=== PATIENT | female | born 1995 | race Caucasian/White ===

== ENCOUNTER 2018-09-30 01:15 | Inpatient (IN) | payer OTHER ==
[2018-09-30 02:04] VITALS: BMI 35.1
[2018-09-30] MEDS ORDERED: AMPICILLIN - 2 GM in SODIUM CHLORIDE 100 ML IVPB ONE (02:30)
[2018-09-30] MEDS ORDERED: AMPICILLIN SODIUM 2 GM VIAL ONE (02:34)
[2018-09-30] MEDS ORDERED: DEXTROSE 5%-LACTATED RINGERS 1,000 ML IV ONE ×2 (02:37→06:15)
[2018-09-30 02:41] LABS: BASO % 0.2 % (0-2.0); EOS % 0.9 % (0-4.5); HEMATOCRIT 29.7 % (32.4-45.2); HEMOGLOBIN 9.7 GM/dL (10.7-15.3); LYMPH % 21.8 % (8-40); MCH 24.6 pg (25.7-33.7); MCHC 32.6 g/dl (32.0-36.0); MEAN CELL VOLUME 75.5 fl (80-96); MEAN PLT VOLUME 9.8 fl (7.5-11.1); MONO % 6.1 % (3.8-10.2); PLATELET COUNT 218 K/MM3 (134-434); RBC 3.93 M/mm3 (3.60-5.2); RDW 16.2 % (11.6-15.6); WHITE BLOOD COUNT 9.9 K/mm3 (4.0-10.0)
[2018-09-30 02:53] LABS: INR 0.99 (0.83-1.09); PROTHROMBIN TIME (PATIENT) 11.7 SEC (9.7-13.0)
[2018-09-30 02:55] LABS: ACTIVATED PTT 26.3 SECONDS (25.2-36.5)
[2018-09-30 03:03] LABS: ALBUMIN 2.7 g/dl (3.4-5.0); ALK PHOS 125 U/L (45-117); ANION GAP 8 MMOL/L (8-16); BILIRUBIN,TOTAL 0.2 mg/dL (0.2-1); BLOOD UREA NITROGEN 9 mg/dL (7-18); CALCIUM 8.5 mg/dL (8.5-10.1); CHLORIDE 106 mmol/L (98-107); CO2 23 mmol/L (21-32); CREATININE 0.5 mg/dL (0.55-1.3); GLUCOSE,RANDOM 127 mg/dL (74-106); POTASSIUM 3.8 mmol/L (3.5-5.1); SGOT/AST 11 U/L (15-37); SGPT/ALT 13 U/L (13-61); SODIUM 137 mmol/L (136-145); TOT PROT 6.3 g/dl (6.4-8.2)
[2018-09-30] MEDS ORDERED: BUTORPHANOL TARTRATE 1 MG/ML VIAL IVPB ONE (03:29)
--- NOTE | 2018-09-30 03:34 | HP ---
Past Medical History - Admission Chief Complaint: SROM History of Present Illness: 23yo @ 38.1 wks with SROM at 5:45pm PNC @ [facility] Preg c/b [facility] ygerus, insufficient care (7 visits), GBS unknown History Source: Patient Limitations to Obtaining History: No Limitations - Past Medical History RECORDS SPECIALIST: No: Alzheimer's, CVA, Dementia, Migraine, Multiple Sclerosis, Peripheral Neuropathy, Parkinson's, Seizure, Syncope, TIA, Vertigo, Other Cardiovascular: No: AFIB, Aneurysm, Aortic Insufficiency, Aortic Stenosis, CAD, CHF, Deep Vein Thrombosis, HTN, Hyperlipdemia, IL, Mitral Insufficiency, Mitral Stenosis, Murmur, Pulmonary Hypertension, Other Pulmonary: No: Asthma, Bronchitis, Cancer, COPD, O2 Dependent, Pneumonia, Previously Intubated, Pulmonary Embolus, Pulmonary Fibrosis, Sleep Apnea, Other Gastrointestinal: No: Ascites, Cancer, Constipation, Crohn's Disease, Diverticulitis, Diverticulosis, Esophageal Varices, Gastritis, GERD, GI Bleed, Hemorrhoids, Hiatal Hernia, Inflamatory Bowel Disease, Irritable Bowel Disease, Pancreatitis, Peptic Ulcer Disease, Ulcerative Colitis, Other Hepatobiliary: No: Cirrhosis, Cholelithiasis, Cholecystitis, Choledocholithiasis , Hepatitis A, Hepatitis B, Hepatitis C, Other Renal/: No: Renal Failure, Renal Inusuff, BPH, Cancer, Hematuria, Hemodialysis , Neurogenic Bladder, Renal Calculi, UTI, Other Reproductive: Yes: Other ...: 1 ...Para: 0 ...Term: 0 ...: 0 ...Spon : 0 ...Induced : 0 ...Multiple Gestation: 0 ...LMP: 12/31/17 ... Weeks Gestation by Dates: 39.0 ...EDC by Dates: 10/07/18 ...EDC by Sono: 10/08/18 - Past Surgical History Past Surgical History: Yes: None Hx Myomectomy: No Hx Transabdominal Cerclage: No - Smoking History Smoking history: Former smoker Have you smoked in the past 12 months: No - Alcohol/Substance Use Hx Alcohol Use: No History of Substance Use: reports: None - Social History Usual Living Arrangement: Yes: Alone ADL: Independent History of Recent Travel: No Home Medications - Allergies Allergies/Adverse Reactions: Allergies Allergy/AdvReac Type Severity Reaction Status Date / Time No Known Allergies Allergy Verified 09/30/18 01:44 - Home Medications Home Medications: Ambulatory Orders Iron 1 tab PO DAILY 09/30/18 Vitamins (Sjr) - 1 tab PO DAILY 09/30/18 Physical Exam - Maternity Vital Signs: Vital Signs Temperature 98.1 F 09/30/18 01:30 Pulse Rate 94 H 09/30/18 03:00 Respiratory Rate 20 09/30/18 03:00 Blood Pressure 128/68 09/30/18 03:00 O2 Sat by Pulse Oximetry (%) Constitutional: Yes: Well Nourished Eyes: Yes: WNL, Conjunctiva Clear, EOM Intact HENT: Yes: WNL, Atraumatic, Normocephalic - Abdominal Exam/OB Number of Fetuses: Single Presentation: Vertex Contractions: Yes Regularity: Irregular Intensity: Unaware Monitor Mode: External Heart Rate Location: [facility] Category: I Accelerations: Non-Uniform Decelerations: None - Vaginal Exam/OB Vaginal Bleediing: No Speculum Exam: No Dilatation (cm): 0 Effacement (%): 0 Amniotic Membrane Status: Ruptured Nitrazine Test: Positive Amniotic Fluid: Yes: Clear Presentation: Vertex/Position Station: -3 - Labs Lab Results: CBC, BMP 09/30/18 02:11 09/30/18 02:11 Assessment/Plan 23yo @ 38.1wks SROM/PROM Admitted to L&D IVFs, clear liquids Cat I tracing Start Amp for GBS unknown/anticipated prolonged rupture Urine Drug Screen Savita Irizarry MD
[2018-09-30] MEDS ORDERED: AMPICILLIN SODIUM 1 GM VIAL ONE ×5 (05:57→22:31)
[2018-09-30] MEDS: AMPICILLIN - 1 GM in SODIUM CHLORIDE 100 ML IVPB SCH ×5 (06:14→22:30)
[2018-09-30] MEDS ORDERED: TUBERCULIN PPD 5 TU/0.1ML SYRINGE (IN PATIENT USE ONLY) ID ONE (06:30)
--- NOTE | 2018-09-30 09:06 | PN ---
Progress Note, Labor Vaginal Exam #1 Heart Rate (range): Cat I Dilatation: 0 Effacement (%): 0 Amniotic Membrane Status: Ruptured Presentation: Vertex/Position Station: -3 Remarks: Pt comfortable Contractions very infrequent Given one dose of cytotec, then transition to pitocin later today Urine Drug Screen ordered Plan of care discussed with patient/nursing/oncoming Guillermo Irizarry MD
[2018-09-30] MEDS ORDERED: MISOPROSTOL 100 MCG TABLET PO ONE (09:30)
[2018-09-30 11:10] LABS: COCAINE, UR NEGATIVE ng/ml (CUTOFF=300); METHADONE, UR NEGATIVE ng/ml (CUTOFF=300); OPIATES, URI NEGATIVE ng/ml (CUTOFF=300); PHENCYCLIDINE,URINE NEGATIVE ng/ml (CUTOFF=25); URINE AMPHETAMINES NEGATIVE ng/ml (CUTOFF=500); URINE BARBITURATES NEGATIVE ng/ml (CUTOFF=200); URINE BENZODIAZEPINES NEGATIVE ng/ml (CUTOFF=200)
--- NOTE | 2018-09-30 16:36 | PN ---
Progress Note (short form) - Note Progress Note: PROLONG prom , RECEIVED CYTOTEC, NO CONTRACTION , FHR CAT 1, , CX 1 CM 50 VX -3 MR ,CLEAR CERVIDIL RISKS DISCUSSED AGREED CERVIDIL INSERTED AT 235 PM
[2018-09-30] MEDS ORDERED: DINOPROSTONE 10 MG VAGINAL SUPPOSITORY VG ONE (18:30)
[2018-09-30] MEDS ORDERED: BUTORPHANOL TARTRATE 1 MG/ML VIAL ONE ×2 (20:35)
[2018-09-30] MEDS ORDERED: PROMETHAZINE HCL 25 MG/1 ML VIAL ONE (20:35)
[2018-09-30] MEDS ORDERED: PROMETHAZINE HCL 25 MG/1 ML VIAL IVPB ONE (20:40)
--- NOTE | 2018-09-30 21:50 | PN ---
Progress Note (short form) - Note Progress Note: cx 2cm, 70 vx -3 mr, fhr cat 1, irregular contraction
--- NOTE | 2018-10-01 00:57 | PN ---
Progress Note (short form) - Note Progress Note: cx 3 cm 80 vx -3 mr, fhr cat 1, irregular contraction, , cervidil removed , wants epidural, advised pitocin after epidural
[2018-10-01] MEDS ORDERED: ELECTROLYTE-148 SOLN 1,000 ML IV SCH (01:00)
[2018-10-01] MEDS ORDERED: FENTANYL/BUPIVACAINE/NS/PF - PCEA - 50 ML DISP.SYRIN EP ONE ×3 (01:02→09:23)
[2018-10-01] MEDS ORDERED: OXYTOCIN 30 UNITS in 0.9% NS 30 UNIT/500 ML INFUS.BAG IVPB SCH (02:00)
[2018-10-01] MEDS ORDERED: FENTANYL/BUPIVACAINE/NS/PF - PCEA - 50 ML DISP.SYRIN EP SCH (02:00)
[2018-10-01] MEDS ORDERED: NALOXONE HCL 0.4 MG/ML VIAL IVPUSH PRN (02:00)
[2018-10-01] MEDS ORDERED: OXYTOCIN 30 UNITS in 0.9% NS 30 UNIT/500 ML INFUS.BAG IVPB ONE (02:09)
[2018-10-01] MEDS ORDERED: AMPICILLIN SODIUM 1 GM VIAL ONE ×3 (02:28→10:30)
[2018-10-01] MEDS: AMPICILLIN - 1 GM in SODIUM CHLORIDE 100 ML IVPB SCH ×6 (02:30→23:03)
--- NOTE | 2018-10-01 07:18 | PN ---
Progress Note (short form) - Note Progress Note: cx 5 cm 80 vx -1 fhr cat 1, c/o back pain
--- NOTE | 2018-10-01 08:30 | PN ---
Progress Note (short form) - Note Progress Note: cx 6 cm, 100 ,vx 0 , fhr cat 1, c/o back pain, anesthesia notified
[2018-10-01] MEDS ORDERED: LIDO 2%/EPI 1:200000 PRESRVFRE (20 ML SDVIAL) ONE (10:11)
[2018-10-01] MEDS ORDERED: PROMETHAZINE HCL 25 MG/1 ML VIAL ONE (12:02)
[2018-10-01] MEDS ORDERED: BUTORPHANOL TARTRATE 1 MG/ML VIAL ONE ×2 (12:02)
[2018-10-01] MEDS ORDERED: BUTORPHANOL TARTRATE 1 MG/ML VIAL IVPUSH ONE (12:05)
[2018-10-01] MEDS ORDERED: PROMETHAZINE HCL 25 MG/1 ML VIAL IVPB ONE (12:05)
[2018-10-01] MEDS ORDERED: PROMETHAZINE HCL 25 MG/1 ML VIAL IVPUSH ONE (12:05)
--- NOTE | 2018-10-01 12:05 | PN ---
Progress Note (short form) - Note Progress Note: cx 6 cm 80 vx -1 mr, fhr cat 1, has epidural ,still c/o pain , will give one dose of stadol , will revaluate in 2 HR if no progress advise c/s
[2018-10-01] MEDS ORDERED: LIDOCAINE HCL 1% PRESERVATIVE FREE - 30ML VIAL ONE (13:19)
[2018-10-01] MEDS ORDERED: OXYTOCIN 20 UNITS in 0.9% NS 20 UNIT/1,000 ML INFUS.BAG IV ONE (13:20)
[2018-10-01] MEDS ORDERED: METHYLERGONOVINE MALEATE 0.2 MG/1 ML AMP IM PRN ×2 (13:44→14:35)
[2018-10-01] MEDS ORDERED: BISACODYL 10 MG SUPP.RECT RC PRN (13:44)
[2018-10-01] MEDS ORDERED: BENZOCAINE 28 GM HEMORRHOIDAL OINTMENT TP PRN (13:44)
[2018-10-01] MEDS ORDERED: BENZOCAINE 20% 57 GM BOTTLE TP PRN (13:44)
[2018-10-01] MEDS ORDERED: WITCH HAZEL 50% (TUCKS) 40 PAD/JAR PAD TP PRN (13:44)
[2018-10-01] MEDS ORDERED: D5W-LR W/ 20 UNITS OXYTOCIN 20 UNIT/1,000 ML INFUS.BAG IV SCH (13:45)
[2018-10-01] MEDS ORDERED: CARBOPROST TROMETHAMINE 250 MCG/ML AMPUL IM ONE (14:33)
[2018-10-01] MEDS ORDERED: OXYTOCIN 20 UNITS in 0.9% NS 20 UNIT/1,000 ML INFUS.BAG IV SCH (14:45)
[2018-10-01 15:16] LABS: VENOUS PC02 46.3 mmHg (41-51); VENOUS PH 7.24 (7.31-7.41); VENOUS PO2 29.3 mmHg (30-40)
[2018-10-01] MEDS: IBUPROFEN 600 MG TABLET (FP) PO PRN (17:21)
[2018-10-01] MEDS: ACETAMINOPHEN 325 MG TABLET (FP) PO PRN (17:22)
[2018-10-01] MEDS: FERROUS SO4 325 MG TABLET (FP) PO SCH (21:21)
[2018-10-02] MEDS: AMPICILLIN - 1 GM in SODIUM CHLORIDE 100 ML IVPB SCH (04:14)
[2018-10-02 07:30] LABS: BASO % 0.2 % (0-2.0); EOS % 0.6 % (0-4.5); HEMATOCRIT 23.2 % (32.4-45.2); HEMOGLOBIN 7.3 GM/dL (10.7-15.3); LYMPH % 12.8 % (8-40); MCH 23.7 pg (25.7-33.7); MCHC 31.6 g/dl (32.0-36.0); MEAN CELL VOLUME 75.1 fl (80-96); MEAN PLT VOLUME 9.4 fl (7.5-11.1); MONO % 7.6 % (3.8-10.2); NEUT % 78.8 % (42.8-82.8); PLATELET COUNT 184 K/MM3 (134-434); RBC 3.09 M/mm3 (3.60-5.2); RDW 16.4 % (11.6-15.6); WHITE BLOOD COUNT 14.6 K/mm3 (4.0-10.0)
[2018-10-02] MEDS: FERROUS SO4 325 MG TABLET (FP) PO SCH ×2 (09:20→21:27)
[2018-10-02] MEDS: PRENATAL VITAMINS W/ FOLIC ACID TABLET (FP) PO SCH (09:20)
[2018-10-02] MEDS ORDERED: DIPHTH,PERTUSS(ACELL),TET 0.5 ML DISP.SYRIN IM ONE (10:00)
[2018-10-02] MEDS: IBUPROFEN 600 MG TABLET (FP) PO PRN ×2 (15:57→23:10)
[2018-10-02] MEDS: ACETAMINOPHEN 325 MG TABLET (FP) PO PRN ×2 (15:58→23:09)
--- NOTE | 2018-10-02 18:15 | PN ---
Post Progress Note Post Day: 1 Type of Delivery: Vital Signs: Vital Signs Temperature 98.8 F 10/02/18 07:50 Pulse Rate 84 10/02/18 07:50 Respiratory Rate 20 10/02/18 07:50 Blood Pressure 130/71 10/02/18 07:50 O2 Sat by Pulse Oximetry (%) 99 10/01/18 13:15 Breast Exam: Yes: Soft Uterus: Yes: Fundus Firm Abdomen/GI: Yes: Abdomen soft Lochia: Yes: Rubra Lochia, amount: Small Extremities: Yes: Calves non-tender Perineum: Yes: Intact Activity: Ambulating - Labs Labs: CBC WBC 14.6 K/mm3 (4.0-10.0) H 10/02/18 07:00 RBC 3.09 M/mm3 (3.60-5.2) L 10/02/18 07:00 Hgb 7.3 GM/dL (10.7-15.3) L 10/02/18 07:00 Hct 23.2 % (32.4-45.2) L D 10/02/18 07:00 MCV 75.1 fl (80-96) L 10/02/18 07:00 MCH 23.7 pg (25.7-33.7) L 10/02/18 07:00 MCHC 31.6 g/dl (32.0-36.0) L 10/02/18 07:00 RDW 16.4 % (11.6-15.6) H 10/02/18 07:00 Plt Count 184 K/MM3 (134-434) 10/02/18 07:00 MPV 9.4 fl (7.5-11.1) 10/02/18 07:00 Absolute Neuts (auto) 11.5 K/mm3 (1.5-8.0) H 10/02/18 07:00 Neutrophils % 78.8 % (42.8-82.8) 10/02/18 07:00 Lymphocytes % 12.8 % (8-40) D 10/02/18 07:00 Monocytes % 7.6 % (3.8-10.2) 10/02/18 07:00 Eosinophils % 0.6 % (0-4.5) 10/02/18 07:00 Basophils % 0.2 % (0-2.0) 10/02/18 07:00 Nucleated RBC % 0 % (0-0) 10/02/18 07:00 Assessment/Plan ppd1 repeat cbc continue iron oob
[2018-10-02] MEDS ORDERED: SENNOSIDES/DOCUSATE COMBO (SENNA PLUS) TABLET (UD) PO PRN (22:00)
[2018-10-03 08:36] VITALS: BP 118/64; PULSE 95; TEMP 98.7
[2018-10-03] MEDS: PRENATAL VITAMINS W/ FOLIC ACID TABLET (FP) PO SCH (09:08)
[2018-10-03] MEDS: FERROUS SO4 325 MG TABLET (FP) PO SCH (09:08)
[2018-10-03 09:13] LABS: BASO % 0.1 % (0-2.0); EOS % 1.2 % (0-4.5); HEMATOCRIT 25.1 % (32.4-45.2); HEMOGLOBIN 7.8 GM/dL (10.7-15.3); LYMPH % 15.5 % (8-40); MCH 23.5 pg (25.7-33.7); MCHC 31.1 g/dl (32.0-36.0); MEAN CELL VOLUME 75.6 fl (80-96); MEAN PLT VOLUME 9.5 fl (7.5-11.1); MONO % 6.1 % (3.8-10.2); NEUT % 77.1 % (42.8-82.8); PLATELET COUNT 219 K/MM3 (134-434); RBC 3.32 M/mm3 (3.60-5.2); RDW 16.8 % (11.6-15.6); WHITE BLOOD COUNT 11.2 K/mm3 (4.0-10.0)
--- NOTE | 2018-10-05 12:40 | DS ---
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: Vital Signs Temperature 98.7 F 10/03/18 07:40 Pulse Rate 95 H 10/03/18 07:40 Respiratory Rate 18 10/03/18 07:40 Blood Pressure 118/64 10/03/18 07:40 O2 Sat by Pulse Oximetry (%) 99 10/01/18 13:15 Constitutional: Yes: Well Nourished, No Distress, Calm Eyes: Yes: WNL, Conjunctiva Clear, EOM Intact HENT: Yes: WNL, Atraumatic, Normocephalic Neck: Yes: WNL, Supple, Trachea Midline Cardiovascular: Yes: WNL, Regular Rate and Rhythm Respiratory: Yes: WNL, Regular, CTA Bilaterally Gastrointestinal: Yes: WNL ...Rectal Exam: Yes: WNL Renal/: Yes: WNL ....Post : Yes: Uterus firm, Uterus non-tender, Slight lochia rubra Breast(s): Yes: WNL Musculoskeletal: Yes: WNL Extremities: Yes: WNL Integumentary: Yes: WNL Neurological: Yes: WNL, Alert, Oriented ...Motor Strength: WNL Psychiatric: Yes: WNL, Alert, Oriented Labs: CBC, BMP 10/03/18 08:30 09/30/18 02:11 Delivery - Delivery Vaginal Delivery: Spontaneous (no complication) Type of Anesthesia: Local, Epidural EBL (cc): 500 Delivery, Single - Stages of Labor Date 1st Stage Initiatied: 10/01/18 Time 1st Stage Initiated: 01:00 Date 2nd Stage Initiated: 10/01/18 Time 2nd Stage Initiated: 13:30 Date of Delivery: 10/01/18 Time of Delivery: 13:59 Time Placenta Delivered: 14:05 Placenta: Yes: Spontaneous (satisfactory, no complication) - 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 to be seen in 4 to 6 weeks. [facility]: [phone] If pain, fever or heavy bleeding call M.[email or web address] Referrals: Chase Davis MD [Staff Physician] - Disposition: HOME - Home Medications Comprehensive Discharge Medication List: Ambulatory Orders Iron 1 tab PO DAILY 09/30/18 Vitamins (Sjr) - 1 tab PO DAILY 09/30/18
== END 2018-10-03 14:30 | disposition home or self-care (01) | DRG 807 ==
LOC: JLDR 01:15 → EDBD 01:15 → J3W 10-01 15:57
PROVIDERS: ADMIT Obstetrics & Gynecology; ATTEND Obstetrics & Gynecology
PROC: 3E0P7VZ Introduction of Hormone into Female Reproductive, Via Natural or Artificial Opening (ICD-10-PCS; 2018-09-30)
PROC: 10E0XZZ Delivery of Products of Conception, External Approach (ICD-10-PCS; principal; 2018-10-01)
DX: O42.02 Full-term premature rupture of membranes, onset of labor within 24 hours of rupture (principal); Z37.0 Single live birth; Z3A.39 39 weeks gestation of pregnancy
CPT/HCPCS: 36415; 36600; 59409; 80053; 80307; 82803; 85025; 85610; 85730; 86593; 86850; 86900; 86901; 87389; 90715

== ENCOUNTER 2019-01-10 23:58 | Emergency (ER) | payer OTHER ==
[2019-01-11 00:11] VITALS: BP 113/72; PULSE 90; TEMP 97.6; BMI 32.5
--- NOTE | 2019-01-11 01:33 | PDOC ---
*Physical Exam - Vital Signs Last Vital Signs Temp Pulse Resp BP Pulse Ox 97.6 F 90 20 113/72 98 01/11/19 00:04 01/11/19 00:04 01/11/19 00:04 01/11/19 00:04 01/11/19 00:04 Medical Decision Making - Medical Decision Making 01/11/19 01:33 Patient seen by the advanced practice provider under my direct supervision. Ancillary testing reviewed as necessary. I agree with plan as outlined by the advanced practice provider. *DC/Admit/Observation/Transfer Diagnosis at time of Disposition: Sunburn - Prescriptions Prescriptions: Calamine 8% Topical Lotion - 1 applic TP BID #1 bottle Hydrocortisone 1% Cream [Hytone 1% Cream -] 1 applic TP BID #1 tube Ibuprofen 600 mg PO QID PRN #20 tablet PRN Reason: Pain - Referrals - Patient Instructions - Post Discharge Activity
--- NOTE | 2019-01-11 01:55 | PDOC ---
History of Present Illness - General Chief Complaint: Sunburn Stated Complaint: BLISTERS ON SKIN Time Seen by Provider: 01/11/19 01:31 History Source: Patient - History of Present Illness Initial Comments: 01/11/19 01:45 23 year old female with sun burn to body and legs since yesterday. patient reports using sunscreen however with erythema and pain to the 01/11/19 02:59 Past History - Past Medical History Allergies/Adverse Reactions: Allergies Allergy/AdvReac Type Severity Reaction Status Date / Time No Known Allergies Allergy Verified 09/30/18 01:44 Home Medications: Ambulatory Orders Iron 1 tab PO DAILY 09/30/18 Vitamins (Sjr) - 1 tab PO DAILY 09/30/18 Calamine 8% Topical Lotion - 1 applic TP BID #1 bottle 01/11/19 Hydrocortisone 1% Cream [Hytone 1% Cream -] 1 applic TP BID #1 tube 01/11/19 Ibuprofen 600 mg PO QID PRN #20 tablet 01/11/19 Asthma: No Cancer: No Cardiac Disorders: No COPD: No Diabetes: No HTN: No Seizures: No Thyroid Disease: No - Suicide/Smoking/Psychosocial Hx Smoking History: Unknown if ever smoked Have you smoked in the past 12 months: No Hx Alcohol Use: No Drug/Substance Use Hx: No Hx Substance Use Treatment: No *Physical Exam - Vital Signs Last Vital Signs Temp Pulse Resp BP Pulse Ox 97.6 F 90 20 113/72 98 01/11/19 00:04 01/11/19 00:04 01/11/19 00:04 01/11/19 00:04 01/11/19 00:04 - Physical Exam General Appearance: Yes: Appropriately Dressed Integumentary: positive: Erythema (erythema to trunk, legs), Other (no streaking ) Neurologic: positive: Fully Oriented, Alert *DC/Admit/Observation/Transfer Diagnosis at time of Disposition: Sunburn - Discharge Dispostion Disposition: HOME - Prescriptions Prescriptions: Calamine 8% Topical Lotion - 1 applic TP BID #1 bottle Hydrocortisone 1% Cream [Hytone 1% Cream -] 1 applic TP BID #1 tube Ibuprofen 600 mg PO QID PRN #20 tablet PRN Reason: Pain - Referrals - Patient Instructions Printed Discharge Instructions: How to Avoid Sunburn Additional Instructions: apply hydrocortisone to the area twice daily use calamine lotion return to the ER in 2 days for a wound check or for any worsening symptoms. - Post Discharge Activity Forms/Work/School Notes: Back to Work
[2019-01-11] MEDS ORDERED: IBUPROFEN 600 MG TABLET (FP) PO ONE ×2 (01:56→02:02)
[2019-01-11] MEDS ORDERED: DEXAMETHASONE 4 MG TABLET (FP) PO ONE (02:00)
[2019-01-11] MEDS ORDERED: DEXAMETHASONE 4 MG TABLET (FP) ONE (02:05)
== END 2019-01-11 03:20 | disposition home or self-care (01) ==
LOC: JER 23:58
DX: L55.9 Sunburn, unspecified (principal)
CPT/HCPCS: 99281-25

== ENCOUNTER 2020-03-10 11:34 | Emergency (ER) | payer OTHER ==
[2020-03-10 11:49] VITALS: BP 111/67; PULSE 84; TEMP 98.4; BMI 23.4
[2020-03-10] MEDS ORDERED: SULFAMETHOXAZOLE/TRIMETHOPRIM 800MG/160MG D.S. TABLET PO ONE (12:28)
[2020-03-10] MEDS ORDERED: SULFAMETHOXAZOLE/TRIMETHOPRIM 800MG/160MG D.S. TABLET ONE (12:29)
--- NOTE | 2020-03-10 12:33 | PDOC ---
History of Present Illness - General Chief Complaint: Wound Stated Complaint: BUG BITE Time Seen by Provider: 03/10/20 11:57 History Source: Patient Exam Limitations: No Limitations - History of Present Illness Initial Comments: 03/10/20 12:47 Patient is a 24-year-old female who presents to the ED with 1 week of a lesion to her left lower leg. She states that the area has gotten progressively more red, more swollen and more tender. She denies any drainage from the area. She has tried to squeeze it to see if any pus would come out. She is unsure if she got bitten by a bug. She denies any fevers or chills. She denies any past medical history or allergies to medications. Past History - Medical History Allergies/Adverse Reactions: Allergies Allergy/AdvReac Type Severity Reaction Status Date / Time No Known Allergies Allergy Verified 03/10/20 11:39 Home Medications: Ambulatory Orders Iron 1 tab PO DAILY 09/30/18 Vitamins (Sjr) - 1 tab PO DAILY 09/30/18 Calamine 8% Topical Lotion - 1 applic TP BID #1 bottle 01/11/19 Hydrocortisone 1% Cream [Hytone 1% Cream -] 1 applic TP BID #1 tube 01/11/19 Ibuprofen 600 mg PO QID PRN #20 tablet 01/11/19 Sulfamethoxazole/Trimethoprim [Bactrim Ds -] 1 tab PO BID #14 tablet 03/10/20 Asthma: No Cancer: No Cardiac Disorders: No COPD: No Diabetes: No HTN: No Seizures: No Thyroid Disease: No - Reproductive History Is Patient Now?: No - Psycho-Social/Smoking History Smoking History: Never smoked Have you smoked in the past 12 months: No - Substance Abuse Hx (Audit-C & DAST Scrn) How often the patient has a drink containing alcohol: Monthly or less Score: In Men: 4 or > Positive; In Women: 3 or > Positive: 1 Screen Result (Pos requires Nsg. Audit-10AR): Negative In the last yr the pt used illegal drug/Rx for NonMed reason: Yes Score: Yes response is considered Positive: 1 Screen Result (Positive result requires Nsg. DAST-10): Positive Review of Systems - Review of Systems Comments:: 03/10/20 12:48 - Review of Systems Able to Perform ROS?: Yes Constitutional: No: Fever, Chills, Loss of Appetite, Night Sweats, Weakness HEENTM: No: Eye Pain, Vision changes, Ear Pain, Throat Pain, Throat Swelling, Mouth Pain, Difficulty Swallowing Respiratory: No: Cough, Shortness of Breath, Wheezing, Sputum Production Cardiac (ROS): No: Chest Pain, Chest Tightness, Palpitations, Irregular Heart Beat, Edema ABD/GI: No: Nausea, Vomiting, Abdominal Pain, Diarrhea : No Dysuria, No Hematuria, No Frequency, No Urgency Musculoskeletal: No: Muscle Pain, Back Pain, Joint Pain, Muscle Weakness, Neck Pain Integumentary: No: Lesions, positive: Left lower leg abscess Neurological: No: Headache, Numbness, Tingling, Weakness, Speech Difficulties *Physical Exam - Vital Signs Last Vital Signs Temp Pulse Resp BP Pulse Ox 98.4 F 84 18 111/67 97 03/10/20 11:39 03/10/20 11:39 03/10/20 11:39 03/10/20 11:39 03/10/20 11:39 - Physical Exam 03/10/20 12:48 - Physical Exam General Appearance: Nourished, Appropriately Dressed, No Distress HEENT: EOMI, Normal Voice, Hearing Grossly Normal Neck: Supple, No Lymphadenopathy (R), No Lymphadenopathy (L), No Rigidity, No Decreased range of motion Respiratory/Chest: Lungs Clear, Normal Breath Sounds. No Respiratory Distress, No Accessory Muscle Use Cardiovascular: Regular Rhythm, Regular Rate, S1, S2 Gastrointestinal/Abdominal: Normal Bowel Sounds, Soft. Non-tender, No Guarding, No Rebound, No Rigidity Musculoskeletal: Normal Inspection. No Decreased Range of Motion Extremity: Normal Capillary Refill, Normal Inspection Integumentary: Normal Color, Dry. There is a 3 cm indurated and fluctuant lesion to the left medial calf with surrounding cellulitis. There is no crepitus. There is no red streaking. There is tenderness to the area. There is no drainage. There is significant warmth to touch. 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 Plan: -I&D performed in the ED with iodoform packing -First dose of Bactrim given in the ED -We will send the remainder of Bactrim to the patient's pharmacy -Patient to return in 2 days for wound check and packing change -She understands and agrees with this treatment plan and she is stable for discharge. Discharge - Discharge Information Problems reviewed: Yes Clinical Impression/Diagnosis: Abscess of left leg, Cellulitis of left leg Condition: Stable Disposition: HOME - Additional Discharge Information Prescriptions: Sulfamethoxazole/Trimethoprim [Bactrim Ds -] 1 tab PO BID #14 tablet - Follow up/Referral - Patient Discharge Instructions Patient Printed Discharge Instructions: DI for Skin Abscess Additional Instructions: Keep the wound clean and dry. You can wash the wound but be careful not to dislodge the packing. Change the dressing daily or as needed if it is saturated. Return to the emergency department in 2 days to have a wound check any packing change. Take the antibiotics as prescribed and complete the entire course even if you are feeling better. Return to the emergency department for worsening pain, high fevers, worsening redness, red streaking, profuse vomiting or any other worsening symptoms. - Post Discharge Activity Work/Back to School Note: Back to Work
== END 2020-03-10 12:34 | disposition home or self-care (01) ==
LOC: JER 11:34
PROC: 0H9LXZZ Drainage of Left Lower Leg Skin, External Approach (ICD-10-PCS; principal; 2020-03-10)
DX: L02.416 Cutaneous abscess of left lower limb (principal)
CPT/HCPCS: 99284-25

== ENCOUNTER 2020-03-12 12:57 | Emergency (ER) | payer OTHER ==
--- NOTE | 2020-03-12 13:01 | PDOC ---
Rapid Medical Evaluation Time Seen by Provider: 03/12/20 13:00 Medical Evaluation: Allergies Allergy/AdvReac Type Severity Reaction Status Date / Time No Known Allergies Allergy Verified 03/10/20 11:39 03/12/20 13:00 I have performed a brief in-person evaluation of this patient. CC: wound check s/p I&D PE: refused Orders: nothing Patient will proceed to ED for further evaluation. Discharge Disposition - Diagnosis Wound check, abscess - Referrals - Patient Instructions - Post Discharge Activity
[2020-03-12 13:04] VITALS: BP 110/60; TEMP 98.4; BMI 23.3
--- NOTE | 2020-03-12 13:26 | PDOC ---
History of Present Illness - General Chief Complaint: Wound Stated Complaint: WOUND Time Seen by Provider: 03/12/20 13:00 History Source: Patient Exam Limitations: No Limitations - History of Present Illness Initial Comments: 03/12/20 13:21 Patient is a 24-year-old female who presents to the ED for left medial calf wound check and packing change. She was seen 2 days ago for an I&D presents today for follow-up. She denies any fevers or chills. She has been taking her antibiotic as prescribed. She states she no longer has any pain. She believes the redness has been decreasing. She states she has otherwise been feeling well. Past History - Medical History Allergies/Adverse Reactions: Allergies Allergy/AdvReac Type Severity Reaction Status Date / Time No Known Allergies Allergy Verified 03/10/20 11:39 Home Medications: Ambulatory Orders Sulfamethoxazole/Trimethoprim [Bactrim Ds -] 1 tab PO BID #14 tablet 03/10/20 Asthma: No Cancer: No Cardiac Disorders: No COPD: No Diabetes: No HTN: No Seizures: No Thyroid Disease: No - Reproductive History Is Patient Now?: No - Psycho-Social/Smoking History Smoking History: Unknown if ever smoked Have you smoked in the past 12 months: No - Substance Abuse Hx (Audit-C & DAST Scrn) In the last yr the pt used illegal drug/Rx for NonMed reason: No Score: Yes response is considered Positive: 0 Screen Result (Positive result requires Nsg. DAST-10): Negative Review of Systems - Review of Systems Comments:: 03/12/20 13:22 - Review of Systems Able to Perform ROS?: Yes Constitutional: No: Fever, Chills, Loss of Appetite, Night Sweats, Weakness HEENTM: No: Eye Pain, Vision changes, Ear Pain, Throat Pain, Throat Swelling, Mouth Pain, Difficulty Swallowing Respiratory: No: Cough, Shortness of Breath, Wheezing, Sputum Production Cardiac (ROS): No: Chest Pain, Chest Tightness, Palpitations, Irregular Heart Beat, Edema ABD/GI: No: Nausea, Vomiting, Abdominal Pain, Diarrhea : No Dysuria, No Hematuria, No Frequency, No Urgency Musculoskeletal: No: Muscle Pain, Back Pain, Joint Pain, Muscle Weakness, Neck Pain Integumentary: No: Lesions, Rash; positive: Wound check and packing change Neurological: No: Headache, Numbness, Tingling, Weakness, Speech Difficulties *Physical Exam - Vital Signs Last Vital Signs Temp Pulse Resp BP Pulse Ox 98.4 F 110/60 03/12/20 13:02 03/12/20 13:02 - Physical Exam 03/12/20 13:23 - Physical Exam General Appearance: Nourished, Appropriately Dressed, No Distress Neck: Supple, No Lymphadenopathy (R), No Lymphadenopathy (L), No Rigidity, No Decreased range of motion Respiratory/Chest: Lungs Clear, Normal Breath Sounds. No Respiratory Distress, No Accessory Muscle Use Cardiovascular: Regular Rhythm, Regular Rate, S1, S2 Musculoskeletal: Normal Inspection. No Decreased Range of Motion Extremity: Normal Capillary Refill, Normal Inspection Integumentary: Normal Color, Dry. No Rash; left lower medial calf with healing abscess. Cellulitis appears to be decreasing. Mild induration without fluctuance. No purulent drainage. Minimal tenderness to palpation. 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 Plan: -Wound does not require repeat packing, previous packing fell out on its own -Patient to continue her antibiotics as prescribed -Patient to keep the wound clean and dry and can continue washing it with warm water and soap daily. She should follow-up with her primary doctor for repeat evaluation. We have referred her to her primary doctor if she does not have 1. -She understands and agrees with this treatment plan and she is stable for discharge. Discharge - Discharge Information Problems reviewed: Yes Clinical Impression/Diagnosis: Wound check, abscess Condition: Stable Disposition: HOME - Follow up/Referral Referrals: [facility] [place] [facility] [place] [Provider Group] - Patient Discharge Instructions Patient Printed Discharge Instructions: DI for Skin Abscess Additional Instructions: Keep the wound clean and dry. You can wash the wound twice daily with warm water and soap. Allow the wound to dry completely before covering it. Continue to take your antibiotics as prescribed and complete the entire course even if you are feeling better. Follow-up with your primary doctor within 1 to 2 days for repeat evaluation. If you do not have a primary doctor we have referred 1 to you. - Post Discharge Activity Work/Back to School Note: Back to Work
== END 2020-03-12 13:28 | disposition home or self-care (01) ==
LOC: JERFT 12:57
DX: Z48.00 Encounter for change or removal of nonsurgical wound dressing (principal)
CPT/HCPCS: 99281-25

== ENCOUNTER 2020-04-10 10:43 | Emergency (ER) | payer OTHER ==
[2020-04-10 10:47] VITALS: BP 116/85; PULSE 71; TEMP 98.3; BMI 32.1
--- NOTE | 2020-04-10 11:23 | PDOC ---
History of Present Illness - General Chief Complaint: Ear Problem Stated Complaint: RT EAR PAIN Time Seen by Provider: 04/10/20 11:04 - History of Present Illness Initial Comments: 04/10/20 11:21 24-year-old female without comorbidities presents for evaluation of right ear pain x1 day no systemic symptoms Past History - Medical History Allergies/Adverse Reactions: Allergies Allergy/AdvReac Type Severity Reaction Status Date / Time No Known Allergies Allergy Verified 04/10/20 10:44 Home Medications: Ambulatory Orders Sulfamethoxazole/Trimethoprim [Bactrim Ds -] 1 tab PO BID #14 tablet 03/10/20 Amox-Tr/K Cl [Augmentin - 875Mg Tablet] 1 tab PO BID #20 tablet 04/10/20 Asthma: No Cancer: No Cardiac Disorders: No COPD: No Diabetes: No HTN: No Seizures: No Thyroid Disease: No - Reproductive History Is Patient Now?: No - Immunization History Immunization Up to Date: Yes - Psycho-Social/Smoking History Smoking History: Never smoked Have you smoked in the past 12 months: No - Substance Abuse Hx (Audit-C & DAST Scrn) How often the patient has a drink containing alcohol: Never Score: In Men: 4 or > Positive; In Women: 3 or > Positive: 0 Screen Result (Pos requires Nsg. Audit-10AR): Negative In the last yr the pt used illegal drug/Rx for NonMed reason: No Score: Yes response is considered Positive: 0 Screen Result (Positive result requires Nsg. DAST-10): Negative Review of Systems - Review of Systems Constitutional: No: Fever HEENTM: Yes: Ear Pain *Physical Exam - Vital Signs Last Vital Signs Temp Pulse Resp BP Pulse Ox 98.3 F 71 20 116/85 100 04/10/20 10:44 04/10/20 10:44 04/10/20 10:44 04/10/20 10:44 04/10/20 10:44 - Physical Exam 04/10/20 11:21 GENERAL: The patient is awake, alert, and fully oriented, in no acute distress. HEAD: Normal with no signs of trauma. EYES: sclera anicteric, conjunctiva clear. ENT: Right ear canal is normal tympanic membrane is erythemic and retracted left ear tympanic membrane and ear canal are normal NECK: Normal range of motion LUNGS: No respiratory distress EXTREMITIES: Normal range of motion, no edema. No clubbing or cyanosis. No cords, erythema, or tenderness. NEUROLOGICAL: Cranial nerves II through XII grossly intact. PSYCH: Normal mood, normal affect. SKIN: Warm, Dry, normal turgor, no rashes or lesions noted. Medical Decision Making - Medical Decision Making 04/10/20 11:22 Augmentin follow-up with ENT I have reviewed the pathophysiology with the patient. They are in agreement with the treatment plan all questions were answered to their satisfaction. Understanding for follow-up without fail was also conveyed to the patient. Again they are in agreement. Discharge - Discharge Information Problems reviewed: Yes Clinical Impression/Diagnosis: Otitis media of right ear Condition: Stable Disposition: HOME - Admission No - Additional Discharge Information Prescriptions: Amox-Tr/K Cl [Augmentin - 875Mg Tablet] 1 tab PO BID #20 tablet - Follow up/Referral Referrals: Blas aVrgas MD [Staff Physician] - - Patient Discharge Instructions Additional Instructions: Please take the antibiotics as directed. Tylenol Motrin as directed for pain. Without fail follow-up with ear nose and throat doctor in 1 to 2 days for further evaluation and treatment options and return to the emergency room should symptoms worsen. - Post Discharge Activity
== END 2020-04-10 11:26 | disposition home or self-care (01) ==
LOC: JERFT 10:43
DX: H66.91 Otitis media, unspecified, right ear (principal)
CPT/HCPCS: 99282-25